=== PATIENT | male | born 1995 | race Caucasian/White ===

== ENCOUNTER 2016-07-31 20:36 | Emergency (ER) | payer SELFPAY ==
[2016-07-31 20:47] VITALS: BP 134/87; PULSE 114; RESP 16; O2SAT 92
[2016-07-31 20:48] VITALS: TEMP 98.4
[2016-07-31] MEDS ORDERED: NS 1,000 ML IV ONE (21:23)
--- NOTE | 2016-07-31 21:30 | CPEKG ---
Heart Rate: 105 RR Interval: 571 P-R Interval: 152 QRSD Interval: 96 QT Interval: 336 QTC Interval: 445 P [place]: 68 QRS [place]: 99 T Wave [place]: 24 EKG Severity - BORDERLINE ECG - EKG Impression: SINUS TACHYCARDIA EKG Impression: CONSIDER RIGHT VENTRICULAR HYPERTROPHY Electronically Signed By: Faraz Richards 31-Jul-2016 22:40:45
[2016-07-31] MEDS ORDERED: AMOXICILLIN/CLAVULANATE POT 875/125 MG TAB PO ONE (21:32)
[2016-07-31 21:42] LABS: % IMMATURE GRANULYOCYTES 0.3 % (0.0-1.1); ABSOLUTE IMMATURE GRANULOCYTES 0.02 10^3/uL (0.00-0.10); ADD DIFF? NO; ADD MORPH? NO; ADD SCAN? NO; ATYPICAL LYMPHOCYTE FLAG 10 (0-99); FRAGMENT RBC FLAG 0 (0-99); HEMATOCRIT 47.2 % (40.0-51.0); HEMOGLOBIN 16.4 g/dL (13.7-17.5); LEFT SHIFT FLG 0 (0-99); LIPEMIA HEMOLYSIS FLAG 90 (0-99); MEAN CELL HEMOGLOBIN 29.1 pg (27.9-34.1); MEAN CELL HEMOGLOBIN CONCENTR. 34.7 g/dL (32.4-36.7); MEAN CELL VOLUME 83.8 fL (81.5-99.8); MEAN PLATELET VOLUME 9.4 fL (8.7-11.7); PLATELET CLUMPS FLAG 0 (0-99); PLATELET COUNT 244 10^3/uL (150-400); RED BLOOD CELL COUNT 5.63 10^6/uL (4.40-6.38); RED CELL DISTRIBUTION WIDTH 12.3 % (11.5-15.2)
[2016-07-31 22:01] LABS: ANION GAP 16 mEq/L (8-16); CALCIUM 9.1 mg/dL (8.5-10.4); CARBON DIOXIDE 29 mEq/l (22-31); CHLORIDE 100 mEq/L (97-110); CREATININE 0.9 mg/dL (0.7-1.3); GLOMERULAR FILTRATION RATE > 60; GLUCOSE 103 mg/dL (70-100); POTASSIUM 3.9 mEq/L (3.5-5.2); SODIUM 145 mEq/L (134-144)
[2016-07-31 22:12] LABS: TROPONIN I < 0.012 ng/mL (0-0.034)
[2016-07-31] MEDS ORDERED: LETS SOLN TOPICAL 1 EA SYR TP ONE (22:57)
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
== END 2016-07-31 23:34 | disposition home or self-care (01) ==
DX: S29.9XXA Unspecified injury of thorax, initial encounter (principal); S09.90XA Unspecified injury of head, initial encounter; Y04.0XXA Assault by unarmed brawl or fight, initial encounter

== ENCOUNTER 2016-08-08 10:28 | Emergency (ER) | payer SELFPAY ==
[2016-08-08 10:33] VITALS: TEMP 98.1
[2016-08-08] MEDS ORDERED: NS 1,000 ML IV ONE ×2 (10:47→13:19)
[2016-08-08] MEDS ORDERED: PANTOPRAZOLE SODIUM 40 MG VIAL IVP ONE (10:47)
[2016-08-08] MEDS ORDERED: ONDANSETRON 4 MG/2 ML VIAL IVP ONE ×2 (10:47→11:27)
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
[2016-08-08 10:59] LABS: % IMMATURE GRANULYOCYTES 0.3 % (0.0-1.1); ABSOLUTE IMMATURE GRANULOCYTES 0.04 10^3/uL (0.00-0.10); ADD DIFF? NO; ADD MORPH? NO; ADD SCAN? NO; ATYPICAL LYMPHOCYTE FLAG 0 (0-99); FRAGMENT RBC FLAG 0 (0-99); HEMATOCRIT 49.7 % (40.0-51.0); HEMOGLOBIN 17.5 g/dL (13.7-17.5); LEFT SHIFT FLG 0 (0-99); LIPEMIA HEMOLYSIS FLAG 90 (0-99); MEAN CELL HEMOGLOBIN 29.5 pg (27.9-34.1); MEAN CELL HEMOGLOBIN CONCENTR. 35.2 g/dL (32.4-36.7); MEAN CELL VOLUME 83.8 fL (81.5-99.8); MEAN PLATELET VOLUME 9.2 fL (8.7-11.7); PLATELET CLUMPS FLAG 0 (0-99); PLATELET COUNT 176 10^3/uL (150-400); RED BLOOD CELL COUNT 5.93 10^6/uL (4.40-6.38); RED CELL DISTRIBUTION WIDTH 12.8 % (11.5-15.2)
[2016-08-08 11:10] LABS: ALANINE AMINOTRANSFERASE 38 IU/L (21-72); ALBUMIN 4.8 g/dL (3.5-5.0); ALKALINE PHOSPHATASE 148 IU/L (38-126); ANION GAP 15 mEq/L (8-16); ASPARTATE AMINOTRANSFERASE 34 IU/L (17-59); BILIRUBIN,TOTAL 1.6 mg/dL (0.1-1.4); BILIRUBIN-CONJUGATED 0.4 mg/dL (0.0-0.5); BILIRUBIN-UNCONJUGATED 1.2 mg/dL (0.0-1.1); CALCIUM 9.1 mg/dL (8.5-10.4); CARBON DIOXIDE 30 mEq/l (22-31); CHLORIDE 99 mEq/L (97-110); CREATININE 0.7 mg/dL (0.7-1.3); GLOMERULAR FILTRATION RATE > 60; GLUCOSE 155 mg/dL (70-100); MAGNESIUM 2.2 mg/dL (1.6-2.3); POTASSIUM 3.4 mEq/L (3.5-5.2); SODIUM 144 mEq/L (134-144); TOTAL PROTEIN 8.2 g/dL (6.3-8.2)
[2016-08-08 11:30] LABS: ETHANOL SERUM 347 mg/dL (0-10)
[2016-08-08] MEDS ORDERED: METOCLOPRAMIDE 10 MG/2 ML VIAL IVP ONE (11:36)
[2016-08-08 13:31] VITALS: RESP 16
[2016-08-08] MEDS ORDERED: CHLORDIAZEPOXIDE 25MG PREPK#6 BTL TAKEHOME ONE (14:31)
[2016-08-08 15:17] VITALS: BP 119/84; PULSE 98; O2SAT 94
== END 2016-08-08 15:16 | disposition home or self-care (01) ==
DX: K83.8 Other specified diseases of biliary tract (principal); B37.9 Candidiasis, unspecified; F10.120 Alcohol abuse with intoxication, uncomplicated
CPT/HCPCS: 96374; G0480; J1200; J2405; J2765

== ENCOUNTER 2016-08-08 23:04 | Inpatient (IN) | payer BC ==
[2016-08-08] MEDS ORDERED: LORazepam 2 MG/ML INJ ONE (23:09)
[2016-08-08] MEDS ORDERED: LORazepam 2 MG/ML INJ IVP ONE (23:15)
[2016-08-08] MEDS ORDERED: NS 1,000 ML IV ONE (23:15)
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
[2016-08-08] MEDS ORDERED: MAG HYDROX/AL HYDROX/SIMETH 30 ML UDCUP PO PRN (23:58)
[2016-08-09] MEDS: LORazepam 2 MG/ML INJ IVP PRN ×13 (00:35→22:00)
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
[2016-08-09] MEDS: NS 1,000 ML IV SCH (02:05)
[2016-08-09] MEDS: THIAMINE HCL 100 MG TAB PO SCH ×2 (02:11→08:19)
[2016-08-09 05:21] LABS: % IMMATURE GRANULYOCYTES 0.4 % (0.0-1.1); ABSOLUTE IMMATURE GRANULOCYTES 0.04 10^3/uL (0.00-0.10); ADD DIFF? NO; ADD MORPH? NO; ADD SCAN? NO; ATYPICAL LYMPHOCYTE FLAG 0 (0-99); FRAGMENT RBC FLAG 0 (0-99); HEMATOCRIT 39.7 % (40.0-51.0); HEMOGLOBIN 14.2 g/dL (13.7-17.5); LEFT SHIFT FLG 0 (0-99); LIPEMIA HEMOLYSIS FLAG 90 (0-99); MEAN CELL HEMOGLOBIN 29.6 pg (27.9-34.1); MEAN CELL HEMOGLOBIN CONCENTR. 35.8 g/dL (32.4-36.7); MEAN CELL VOLUME 82.7 fL (81.5-99.8); MEAN PLATELET VOLUME 9.8 fL (8.7-11.7); PLATELET CLUMPS FLAG 10 (0-99); PLATELET COUNT 118 10^3/uL (150-400); RED CELL DISTRIBUTION WIDTH 12.8 % (11.5-15.2)
[2016-08-09 05:28] LABS: INR 1.12 (0.83-1.16); PROTIME(PATIENT) 14.3 SEC (12.0-15.0)
[2016-08-09 05:29] LABS: APTT 30.3 SEC (23.0-38.0)
[2016-08-09 05:39] LABS: ALANINE AMINOTRANSFERASE 31 IU/L (21-72); ALBUMIN 3.9 g/dL (3.5-5.0); ALKALINE PHOSPHATASE 116 IU/L (38-126); ANION GAP 11 mEq/L (8-16); ASPARTATE AMINOTRANSFERASE 32 IU/L (17-59); BILIRUBIN,TOTAL 2.2 mg/dL (0.1-1.4); CALCIUM 8.8 mg/dL (8.5-10.4); CARBON DIOXIDE 27 mEq/l (22-31); CHLORIDE 99 mEq/L (97-110); CREATININE 0.6 mg/dL (0.7-1.3); GLOMERULAR FILTRATION RATE > 60; GLUCOSE 107 mg/dL (70-100); MAGNESIUM 1.3 mg/dL (1.6-2.3); POTASSIUM 3.7 mEq/L (3.5-5.2); SODIUM 137 mEq/L (134-144); TOTAL PROTEIN 6.5 g/dL (6.3-8.2)
[2016-08-09 06:02] LABS: BILIRUBIN-CONJUGATED 0.3 mg/dL (0.0-0.5); BILIRUBIN-UNCONJUGATED 1.9 mg/dL (0.0-1.1)
[2016-08-09] MEDS ORDERED: PROTOCOL MAGNESIUM 1 DOSE IV PRN (06:57)
[2016-08-09] MEDS ORDERED: PROTOCOL POTASSIUM 1 DOSE MISC PRN (06:57)
[2016-08-09] MEDS ORDERED: POTASSIUM CL 10 MEQ TAB PO ONE (07:22)
[2016-08-09] MEDS ORDERED: MAGNESIUM SULF 2 GM/WATER 50 ML IV ONE ×2 (08:14→20:27)
[2016-08-09] MEDS: MULTIVITAMINS 1 EACH TAB PO SCH (08:18)
[2016-08-09] MEDS: FOLIC ACID 1 MG TAB PO SCH (08:18)
[2016-08-09] MEDS: FAMOTIDINE 20 MG TAB PO SCH ×2 (08:19→23:54)
[2016-08-09] MEDS ORDERED: FAMOTIDINE 20 MG/NACL 50 ML IV SCH (09:00)
--- NOTE | 2016-08-09 09:17 | HOSPPROG ---
Hospitalist Progress Note Assessment/Plan: 20 yo M w alcoholism admitted w alcohol withdrawal and vomiting alcohol withdrawal: improved in that less tachy ang hypertensive still tremulous add scheduled librium vomiting: gastritis plus withdrawal continue h2 juan jose no signs bleeding elevated bilirubin: alcohol related liver disease or gilberts follow proph: add lmwh dispo: to floor does not want to return to [facility] high chance for relapse Subjective: tele: sinus tach (interp by me). case d/w dr muir Objective: Vital Signs Temp Pulse Resp BP Pulse Ox 36.8 C 72 15 114/86 H 97 08/09/16 07:21 08/09/16 07:21 08/09/16 07:21 08/09/16 07:21 08/09/16 07:21 Laboratory Results 08/09/16 05:00 08/09/16 05:00 08/08/16 08/09/16 08/10/16 05:59 05:59 05:59 Intake Total 1536 Balance 1536 PT 14.3 SEC (12.0-15.0) 08/09/16 05:00 INR 1.12 (0.83-1.16) 08/09/16 05:00 - Physical Exam Constitutional: no apparent distress, appears nourished, other (tremulous) Eyes: PERRL, anicteric sclera Ears, Nose, Mouth, Throat: moist mucous membranes, hearing normal Cardiovascular: regular rate and rhythym, no murmur, rub, or gallop Respiratory: no respiratory distress, no rales or rhonchi Gastrointestinal: normoactive bowel sounds, soft, non-tender abdomen Genitourinary: no bladder fullness, No rocha in urethra Skin: warm, normal color Musculoskeletal: no muscle tenderness, No full muscle strength Neurologic: AAOx3 Psychiatric: interacting appropriately, No not anxious ICD10 Worksheet Patient Problems: Problems Problem Status Onset Alcohol withdrawal Acute
[2016-08-09] MEDS: DEXMEDETOMIDINE HCL 400 MCG in NS 100 ML IV SCH ×2 (18:12→22:00)
[2016-08-09] MEDS: chlordiazePOXIDE 25 MG CAP PO SCH ×2 (18:14→23:47)
[2016-08-09 19:00] LABS: COLOR YELLOW; LEUKOCYTE ESTERASE,URINE NEGATIVE (NEGATIVE); NITRITE,URINE NEGATIVE (NEGATIVE)
[2016-08-09 19:43] LABS: POTASSIUM 3.7 mEq/L (3.5-5.2)
[2016-08-09] MEDS: POTASSIUM Cl (KCl) 100 ML IV SCH ×2 (22:00→23:52)
[2016-08-09] MEDS: FAMOTIDINE 20 MG/NACL 50 ML IV SCH (22:30)
[2016-08-09] MEDS: THIAMINE HCL 100 MG in NS 50 ML IV SCH (23:53)
[2016-08-10] MEDS ORDERED: NS 1,000 ML IV SCH (00:45)
[2016-08-10] MEDS: DEXMEDETOMIDINE HCL 400 MCG in NS 100 ML IV SCH ×5 (02:34→19:58)
[2016-08-10 06:17] LABS: MAGNESIUM 2.2 mg/dL (1.6-2.3); POTASSIUM 3.6 mEq/L (3.5-5.2)
[2016-08-10] MEDS: THIAMINE HCL 100 MG in NS 50 ML IV SCH (08:37)
[2016-08-10] MEDS ORDERED: LORazepam 2 MG/ML INJ IVP ONE (08:53)
[2016-08-10] MEDS ORDERED: LORazepam 2 MG/ML INJ IVP PRN ×2 (09:23→09:28)
--- NOTE | 2016-08-10 09:33 | HOSPPROG ---
Hospitalist Progress Note Assessment/Plan: 20 yo M w alcoholism admitted w alcohol withdrawal and vomiting. Withdrawal significantly worse overnight alcohol withdrawal: now sedated on precedex- probably oversedated to sedated for po's wean precedex add scheduled ativan 1 q 4 vomiting: gastritis plus withdrawal continue h2 juan jose no signs bleeding check hct today elevated bilirubin: alcohol related liver disease or gilberts follow proph: add lmwh dispo: step down Subjective: agitated oernight requiring precedex and a visit from security officers. case d/w dr muir. tele: sinus tach AM 08/09 (interp by ar) Objective: Vital Signs Temp Pulse Resp BP Pulse Ox 36.7 C 67 18 133/91 H 99 08/10/16 08:00 08/10/16 08:00 08/10/16 08:00 08/10/16 08:00 08/10/16 08:00 Laboratory Results 08/09/16 05:00 08/10/16 05:55 08/09/16 08/10/16 08/11/16 05:59 05:59 05:59 Intake Total 1536 1494 Balance 1536 1494 PT 14.3 SEC (12.0-15.0) 08/09/16 05:00 INR 1.12 (0.83-1.16) 08/09/16 05:00 ICD10 Worksheet Patient Problems: Problems Problem Status Onset Alcohol withdrawal Acute
[2016-08-10] MEDS: chlordiazePOXIDE 25 MG CAP PO SCH (10:04)
[2016-08-10] MEDS: MULTIVITAMINS 1 EACH TAB PO SCH (10:04)
[2016-08-10] MEDS: FOLIC ACID 1 MG TAB PO SCH (10:04)
[2016-08-10] MEDS: FAMOTIDINE 20 MG/NACL 50 ML IV SCH ×2 (10:05→20:03)
[2016-08-10 11:08] LABS: % IMMATURE GRANULYOCYTES 0.4 % (0.0-1.1); ABSOLUTE IMMATURE GRANULOCYTES 0.03 10^3/uL (0.00-0.10); ADD DIFF? NO; ADD MORPH? NO; ADD SCAN? NO; ATYPICAL LYMPHOCYTE FLAG 0 (0-99); FRAGMENT RBC FLAG 0 (0-99); HEMOGLOBIN 13.2 g/dL (13.7-17.5); LEFT SHIFT FLG 30 (0-99); LIPEMIA HEMOLYSIS FLAG 90 (0-99); MEAN CELL HEMOGLOBIN 29.3 pg (27.9-34.1); MEAN CELL HEMOGLOBIN CONCENTR. 34.7 g/dL (32.4-36.7); MEAN CELL VOLUME 84.3 fL (81.5-99.8); MEAN PLATELET VOLUME 10.1 fL (8.7-11.7); PLATELET CLUMPS FLAG 0 (0-99); PLATELET COUNT 85 10^3/uL (150-400); RED BLOOD CELL COUNT 4.51 10^6/uL (4.40-6.38); RED CELL DISTRIBUTION WIDTH 13.1 % (11.5-15.2)
[2016-08-10 11:32] LABS: ANION GAP 7 mEq/L (8-16); CARBON DIOXIDE 21 mEq/l (22-31); CHLORIDE 110 mEq/L (97-110); CREATININE 0.5 mg/dL (0.7-1.3); GLOMERULAR FILTRATION RATE > 60; GLUCOSE 95 mg/dL (70-100); SODIUM 138 mEq/L (134-144)
[2016-08-10] MEDS: NS 1,000 ML IV SCH ×2 (12:56→19:58)
[2016-08-10] MEDS: LORazepam 2 MG/ML INJ IVP PRN ×3 (13:30→19:58)
--- NOTE | 2016-08-10 16:35 | GCON ---
[f rep st] CONSULTATION PULMONARY/CRITICAL CARE CONSULTATION. DATE OF CONSULTATION: 08/10/2016 REFERRING PHYSICIAN: Macario Talley MD REASON FOR REFERRAL: Evaluation and management of altered mental status and alcohol withdrawal. HISTORY: The patient is a 20-year-old male with a history of alcohol abuse who is sent to the emerg ency department from the [facility] for acute alcohol withdrawal. On 08/08 he presented with a headache, n ausea and vomiting with acute alcohol intoxication. He also had some vomiting for several days, al though he continued to drink. He stopped drinking in the morning of the . His evaluation there was unremarkable and he was sent to the [facility] with a Librium prescription. He was in moderate withdr awal there and progressively worsened so he was transferred back to the emergency department and adm itted, due to moderate alcohol withdrawal with a CIWA score of 17, including some auditory hallucina tions. He was treated with IV Ativan and Precedex. He has been somnolent with intermittent agitati on since admission. He is currently minimally responsive and not able to answer questions. PAST MEDICAL HISTORY: Chronic alcohol use status post rehab stay in May 2016. He apparently h as no history of seizures. MEDICATIONS: None. ALLERGIES: None. SOCIAL HISTORY: Heavy alcohol use. He does not smoke. He lives here in [place] with his brother. FAMILY HISTORY: Unremarkable. REVIEW OF SYSTEMS: Unobtainable. PHYSICAL EXAMINATION: GENERAL: The patient is somnolent and arousable just to noxious stimuli. He is not able to follow commands. VITAL SIGNS: Blood pressure is 133/97, with a heart rate of 65, r espiratory rate is 22 and mildly labored, with deep regular respirations. He is afebrile. Oxygen s aturations are 98% on 1 L. HEENT: Normocephalic and atraumatic. No icterus. NECK: No JVD. Trac hea is midline. CHEST: Clear to auscultation. CARDIAC: Regular rate and rhythm without murmur. ABDOMEN: Soft, nontender. Bowel sounds are present. EXTREMITIES: No clubbing, cyanosis, or edema . NEURO: Responsive only to noxious stimuli. Moves all 4 extremities semi purposefully. LABORATORY: Chemistry group is remarkable for a sodium 138, and a potassium of 3.0. Carbon dioxide level is 21. Anion gap is 7. Hemoglobin of 13.2 with a white blood count of 8.2. INR is 1.1. ASSESSMENT: 1. Alcohol withdrawal. This is moderate in severity. The patient is currently on Ativan. He was on 2 mg every 4 hours and this has been decreased to 1 mg every 4 hours because the patient was quit e sedated. He is also on Precedex. He was written for Librium but he is not able to take p.o. curr ently. 2. Tachypnea. The patient is tachypneic with deep respirations. He has a suggestion of mild metab olic acidosis based on the chemistry test taken earlier. RECOMMENDATIONS: 1. Continue Ativan. If he remains this sedated, we may change the scheduled IV Ativan to p.r.n. 2. Check an arterial blood gas to ensure the patient does not have a worsening metabolic acidosis a s the cause of his tachypnea. /[id number]/MODL
[2016-08-10 16:45] LABS: BASE EXCESS -0.5 mEq/L (-2.5-2.5); BICARBONATE 23 mEq/L (22-26); MEASURED OXYGEN SATURATION 92 % (92-95); PCO2 35 mmHg (34-38); PO2 60 mmHg (65-75); TCO2 24 mEq/L (23-27)
[2016-08-10] MEDS ORDERED: PROTOCOL MAGNESIUM 1 DOSE IV PRN (23:14)
[2016-08-10] MEDS ORDERED: PROTOCOL POTASSIUM 1 DOSE MISC PRN (23:14)
[2016-08-11 00:36] LABS: MAGNESIUM 1.6 mg/dL (1.6-2.3); POTASSIUM 3.5 mEq/L (3.5-5.2)
[2016-08-11] MEDS ORDERED: MAGNESIUM SULF 1 GM/DEXTROSE 100 ML IV ONE (00:43)
[2016-08-11] MEDS: LORazepam 2 MG/ML INJ IVP PRN (01:54)
[2016-08-11] MEDS: POTASSIUM Cl (KCl) 100 ML IV SCH ×7 (01:54→13:15)
[2016-08-11] MEDS: DEXMEDETOMIDINE HCL 400 MCG in NS 100 ML IV SCH (01:55)
[2016-08-11] MEDS: NS 1,000 ML IV SCH (05:03)
[2016-08-11 08:17] LABS: ANION GAP 5 mEq/L (8-16); CALCIUM 5.9 mg/dL (8.5-10.4); CARBON DIOXIDE 20 mEq/l (22-31); CHLORIDE 112 mEq/L (97-110); CREATININE 0.4 mg/dL (0.7-1.3); GLOMERULAR FILTRATION RATE > 60; GLUCOSE 72 mg/dL (70-100); SODIUM 137 mEq/L (134-144)
[2016-08-11 08:21] LABS: POTASSIUM 2.6 mEq/L (3.5-5.2)
[2016-08-11] MEDS ORDERED: POTASSIUM CL 20 MEQ/15 ML UDCUP PO ONE (08:29)
[2016-08-11] MEDS ORDERED: THIAMINE HCL 100 MG TAB PO SCH (09:00)
[2016-08-11] MEDS ORDERED: MAGNESIUM SULF 2 GM/WATER 50 ML IV ONE (09:18)
[2016-08-11] MEDS: FAMOTIDINE 20 MG/NACL 50 ML IV SCH (09:32)
[2016-08-11] MEDS: chlordiazePOXIDE 25 MG CAP PO SCH ×3 (09:32→21:05)
[2016-08-11] MEDS: MULTIVITAMINS 1 EACH TAB PO SCH (09:32)
[2016-08-11] MEDS: FOLIC ACID 1 MG TAB PO SCH (09:32)
--- NOTE | 2016-08-11 09:52 | HOSPPROG ---
Hospitalist Progress Note Assessment/Plan: 20 yo M w alcoholism admitted w alcohol withdrawal and vomiting. alcohol withdrawal: weaned off precedex. cont scheduled librium, prn ativan. likely transfer to floor today if remains stable off precedex. vomiting: gastritis plus withdrawal continue h2 juan jose no signs bleeding elevated bilirubin: alcohol related liver disease or gilberts follow proph: SCD's dispo: step down Subjective: Pt more awake, off precedex. Appears dry. Denies CP, SOB, N/V/D. No abdominal pain. Objective: Vital Signs Temp Pulse Resp BP Pulse Ox 37.4 C 68 22 H 129/98 H 94 08/11/16 07:50 08/11/16 07:50 08/11/16 07:50 08/11/16 07:50 08/11/16 07:50 Laboratory Results 08/10/16 10:30 08/11/16 07:46 08/10/16 08/11/16 08/12/16 05:59 05:59 05:59 Intake Total 1494 4626 Output Total 2725 Balance 1494 1901 PT 14.3 SEC (12.0-15.0) 08/09/16 05:00 INR 1.12 (0.83-1.16) 08/09/16 05:00 - Physical Exam Constitutional: no apparent distress Eyes: PERRL Ears, Nose, Mouth, Throat: moist mucous membranes Cardiovascular: regular rate and rhythym Respiratory: no respiratory distress, clear to auscultation Gastrointestinal: normoactive bowel sounds, soft, non-tender abdomen Skin: warm Musculoskeletal: full muscle strength Neurologic: AAOx3 ICD10 Worksheet Patient Problems: Problems Problem Status Onset Alcohol withdrawal Acute
[2016-08-11] MEDS ORDERED: LORazepam 2 MG/ML INJ IVP PRN (14:32)
[2016-08-11] MEDS: LORazepam 0.5 MG TAB PO PRN ×3 (16:08→23:54)
--- NOTE | 2016-08-11 16:17 | PDINTPN ---
Sil[facility] Examiner Progress Note Assessment/Plan: Assessment: Alcohol Withdrawal: Improved, more alert, taking PO. Hypokalemia: No signs cardiac arrhythmias Hypercalcemia: No Sx Hypomagnesemia: Plan: Replace Mg, K+, Ca++. Complete transition to PO benzo's. Transfer to M/S. 08/11/16 16:20 Subjective: More alert, minimal agitation. aking PO, able to walk with minimal assistance. No pain. Objective: Vital Signs Temp Pulse Resp BP Pulse Ox 37.1 C 96 16 126/85 H 94 08/11/16 16:00 08/11/16 16:00 08/11/16 16:00 08/11/16 16:00 08/11/16 07:50 Laboratory Results 08/10/16 10:30 08/11/16 07:46 08/10/16 08/11/16 08/12/16 05:59 05:59 05:59 Intake Total 1494 4626 Output Total 2725 2205 Balance 1494 1901 -2205 PT 14.3 SEC (12.0-15.0) 08/09/16 05:00 INR 1.12 (0.83-1.16) 08/09/16 05:00 Physical Exam - Physical Exam General Appearance: alert, no apparent distress EENT: normal ENT inspection Neck: normal inspection Respiratory: lungs clear, normal breath sounds Cardiac/Chest: regular rate, rhythm, No edema Abdomen: normal bowel sounds, non-tender, soft Skin: normal color, warm/dry Extremities: normal inspection Neuro/Psych: alert, normal mood/affect ICD10 Worksheet Patient Problems: Problems Problem Status Onset Alcohol withdrawal Acute
[2016-08-11 19:01] LABS: POTASSIUM 4.4 mEq/L (3.5-5.2)
[2016-08-11] MEDS: FAMOTIDINE 20 MG TAB PO SCH (20:05)
[2016-08-12 03:28] LABS: ANION GAP 14 mEq/L (8-16); CARBON DIOXIDE 24 mEq/l (22-31); CHLORIDE 100 mEq/L (97-110); CREATININE 0.6 mg/dL (0.7-1.3); GLUCOSE 89 mg/dL (70-100); POTASSIUM 3.4 mEq/L (3.5-5.2); SODIUM 138 mEq/L (134-144)
[2016-08-12 03:29] LABS: ALANINE AMINOTRANSFERASE 30 IU/L (21-72); ALBUMIN 4.3 g/dL (3.5-5.0); ALKALINE PHOSPHATASE 119 IU/L (38-126); ASPARTATE AMINOTRANSFERASE 24 IU/L (17-59); BILIRUBIN,TOTAL 1.6 mg/dL (0.1-1.4); CALCIUM 9.1 mg/dL (8.5-10.4); GLOMERULAR FILTRATION RATE > 60; MAGNESIUM 2.3 mg/dL (1.6-2.3); TOTAL PROTEIN 7.1 g/dL (6.3-8.2)
[2016-08-12] MEDS ORDERED: POTASSIUM CL 10 MEQ TAB PO ONE ×2 (04:01→19:39)
[2016-08-12] MEDS: LORazepam 0.5 MG TAB PO PRN ×4 (04:22→21:02)
[2016-08-12] MEDS: chlordiazePOXIDE 25 MG CAP PO SCH ×2 (08:44→20:57)
[2016-08-12] MEDS: FOLIC ACID 1 MG TAB PO SCH (08:44)
[2016-08-12] MEDS: MULTIVITAMINS 1 EACH TAB PO SCH (08:44)
[2016-08-12] MEDS: FAMOTIDINE 20 MG TAB PO SCH ×2 (08:44→20:57)
--- NOTE | 2016-08-12 13:46 | HOSPPROG ---
Hospitalist Progress Note Assessment/Plan: 20 yo M w alcoholism admitted w alcohol withdrawal and vomiting. alcohol withdrawal: CIWA's variable. weaned off precedex. will wean dose of scheduled librium, cont prn ativan. transfer to med surg. vomiting: gastritis plus withdrawal continue h2 juan jose no signs bleeding hypokalemia: on replacement protocol, follow elevated bilirubin: alcohol related liver disease vs gilberts. trending down. proph: SCD's dispo: transfer to med surg Subjective: Pt still a bit confused, mixing up words. Mild tremor, still some epigstric discomfort. No N/V or e/o bleeding. Objective: Vital Signs Temp Pulse Resp BP Pulse Ox 37.0 C 96 14 143/90 H 96 08/12/16 11:18 08/12/16 11:18 08/12/16 11:18 08/12/16 11:18 08/12/16 11:18 Laboratory Results 08/10/16 10:30 08/12/16 03:00 08/11/16 08/12/16 08/13/16 05:59 05:59 05:59 Intake Total 4626 1500 Output Total 2725 2205 Balance 1901 -705 PT 14.3 SEC (12.0-15.0) 08/09/16 05:00 INR 1.12 (0.83-1.16) 08/09/16 05:00 - Physical Exam Constitutional: no apparent distress Eyes: PERRL Ears, Nose, Mouth, Throat: moist mucous membranes Cardiovascular: tachycardia Respiratory: no respiratory distress Gastrointestinal: normoactive bowel sounds, soft, non-tender abdomen Skin: warm Musculoskeletal: full muscle strength Neurologic: AAOx3 Psychiatric: interacting appropriately ICD10 Worksheet Patient Problems: Problems Problem Status Onset Alcohol withdrawal Acute
[2016-08-12] MEDS: ACETAMINOPHEN 325 MG TAB PO PRN ×2 (15:19→20:16)
[2016-08-12 19:05] LABS: POTASSIUM 3.4 mEq/L (3.5-5.2)
[2016-08-13] MEDS: LORazepam 0.5 MG TAB PO PRN (00:59)
[2016-08-13] MEDS: ACETAMINOPHEN 325 MG TAB PO PRN ×4 (01:02→18:36)
[2016-08-13] MEDS ORDERED: HALOPERIDOL 2 MG TAB PO ONE (02:30)
[2016-08-13 05:33] LABS: MAGNESIUM 2.1 mg/dL (1.6-2.3); POTASSIUM 3.5 mEq/L (3.5-5.2)
[2016-08-13] MEDS: chlordiazePOXIDE 25 MG CAP PO SCH ×3 (08:22→21:10)
[2016-08-13] MEDS: MULTIVITAMINS 1 EACH TAB PO SCH (08:22)
[2016-08-13] MEDS: FOLIC ACID 1 MG TAB PO SCH (08:22)
[2016-08-13] MEDS: FAMOTIDINE 20 MG TAB PO SCH ×2 (08:22→21:10)
[2016-08-13] MEDS ORDERED: HALOPERIDOL 2 MG TAB PO PRN (09:07)
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
[2016-08-13] MEDS ORDERED: POTASSIUM CL 10 MEQ TAB PO ONE ×2 (10:36→13:30)
[2016-08-13 18:09] LABS: POTASSIUM 4.1 mEq/L (3.5-5.2)
[2016-08-14] MEDS: LORazepam 0.5 MG TAB PO PRN ×5 (00:17→23:22)
[2016-08-14 05:25] LABS: POTASSIUM 3.5 mEq/L (3.5-5.2)
[2016-08-14] MEDS: chlordiazePOXIDE 25 MG CAP PO SCH ×2 (08:30→20:30)
[2016-08-14] MEDS: FOLIC ACID 1 MG TAB PO SCH (08:30)
[2016-08-14] MEDS: MULTIVITAMINS 1 EACH TAB PO SCH (08:30)
[2016-08-14] MEDS: FAMOTIDINE 20 MG TAB PO SCH (08:30)
[2016-08-14] MEDS: ACETAMINOPHEN 325 MG TAB PO PRN ×3 (08:40→22:22)
[2016-08-14] MEDS ORDERED: MAGNESIUM HYDROXIDE 30 ML UDCUP PO PRN (08:48)
[2016-08-14] MEDS ORDERED: POLYETHYLENE GLYCOL 3350 17 GM PKT PO PRN (08:48)
[2016-08-14] MEDS ORDERED: BISACODYL 10 MG SUPP PR PRN (08:48)
[2016-08-14] MEDS ORDERED: LACTULOSE 20 GM/30 ML UDCUP PO PRN (08:48)
[2016-08-14] MEDS: SENNOSIDES/DOCUSATE SODIUM TAB PO SCH ×2 (09:51→20:30)
[2016-08-14] MEDS ORDERED: POTASSIUM CL 10 MEQ TAB PO ONE (11:29)
[2016-08-14] MEDS ORDERED: D5W NS W/ 20 KCl/L 1,000 ML IV SCH (12:15)
--- NOTE | 2016-08-14 12:16 | HOSPPROG ---
Hospitalist Progress Note Assessment/Plan: 20 yo M w alcoholism admitted w alcohol withdrawal and vomiting. alcohol withdrawal: 5 days since last drink. CIWA's variable, still up to 13 overnight with hallucinations. weaned off precedex. -reduce librium to BID -cont prn ativan -pt plans to go to AA upon d/c and also has Rx for naltrexone to prevent cravings acute pancreatitis: lipase >3K. Will make NPO for bowel rest, start IVF's, PPI , pain control. hypokalemia: on replacement protocol, follow elevated bilirubin: alcohol related liver disease vs gilberts. trending down. proph: SCD's dispo: cont inpt Subjective: Pt c/o epigastric pain. N/V improved. Ate a lot of greasy food yesterday, which contributed to increased pain. No fevers. Objective: Vital Signs Temp Pulse Resp BP Pulse Ox 36.4 C 86 20 122/71 H 97 08/14/16 11:40 08/14/16 11:40 08/14/16 11:40 08/14/16 11:40 08/14/16 11:40 Laboratory Results 08/10/16 10:30 08/14/16 04:34 08/13/16 08/14/16 08/15/16 05:59 05:59 05:59 Intake Total 950 1250 Balance 950 1250 PT 14.3 SEC (12.0-15.0) 08/09/16 05:00 INR 1.12 (0.83-1.16) 08/09/16 05:00 - Physical Exam Constitutional: no apparent distress Eyes: PERRL Ears, Nose, Mouth, Throat: moist mucous membranes Cardiovascular: regular rate and rhythym Respiratory: no respiratory distress Gastrointestinal: normoactive bowel sounds, other (soft, nd, +epigastric TTP, no r/r/g) Skin: warm Musculoskeletal: full muscle strength Neurologic: AAOx3 Psychiatric: interacting appropriately ICD10 Worksheet Patient Problems: Problems Problem Status Onset Alcohol withdrawal Acute
[2016-08-14] MEDS: PANTOPRAZOLE SODIUM 40 MG in NS 100 ML IV SCH (15:25)
[2016-08-14] MEDS: SUCRALFATE 1 GM/10 ML UDCUP PO SCH ×3 (15:25→20:30)
[2016-08-15] MEDS: ACETAMINOPHEN 325 MG TAB PO PRN ×4 (05:11→22:42)
[2016-08-15 05:43] LABS: ANION GAP 8 mEq/L (8-16); CARBON DIOXIDE 26 mEq/l (22-31); CHLORIDE 108 mEq/L (97-110); CREATININE 0.6 mg/dL (0.7-1.3); GLOMERULAR FILTRATION RATE > 60; GLUCOSE 108 mg/dL (70-100); POTASSIUM 3.9 mEq/L (3.5-5.2); SODIUM 142 mEq/L (134-144)
[2016-08-15] MEDS: LORazepam 0.5 MG TAB PO PRN ×2 (07:14→13:19)
[2016-08-15] MEDS: FOLIC ACID 1 MG TAB PO SCH (10:03)
[2016-08-15] MEDS: MULTIVITAMINS 1 EACH TAB PO SCH (10:03)
[2016-08-15] MEDS: chlordiazePOXIDE 25 MG CAP PO SCH (10:03)
[2016-08-15] MEDS: SENNOSIDES/DOCUSATE SODIUM TAB PO SCH ×2 (10:03→20:24)
[2016-08-15] MEDS: PANTOPRAZOLE SODIUM 40 MG in NS 100 ML IV SCH (10:03)
[2016-08-15] MEDS: SUCRALFATE 1 GM/10 ML UDCUP PO SCH ×4 (10:10→20:24)
[2016-08-15] MEDS ORDERED: POTASSIUM CL 10 MEQ TAB PO ONE (11:45)
--- NOTE | 2016-08-15 14:23 | HOSPPROG ---
Hospitalist Progress Note Assessment/Plan: 20 yo M w alcoholism admitted w alcohol withdrawal, now with pancreatitis alcohol withdrawal: 5 days since last drink. Required ICU care with Precedex. Now improved, through w/d, CIWA's 2-3 overnight. -d/c librium -prn ativan -pt plans to go to AA upon d/c and also has Rx for naltrexone to prevent cravings acute pancreatitis: lipase trending down and pt is pain free today after 24 hrs bowel rest. he feels much better and wants to go home. -trial clears today -change to oral ppi -will defer checking lipase in am and follow clinical status. If tolerating po without increased pain, can d/c home in am. hypokalemia: replaced, resolved elevated bilirubin: trended down, likely etoh related proph: SCD's dispo: cont inpt, if remains pain free with oral intake, d/c home in am Subjective: Pt feels much better. No pain. NPO for past 24 hrs. Wants to go home, but hasn't taken any po. No fevers. No N/V. Objective: Vital Signs Temp Pulse Resp BP Pulse Ox 36.8 C 89 18 124/83 H 98 08/15/16 11:37 08/15/16 11:37 08/15/16 11:37 08/15/16 11:37 08/15/16 11:37 Laboratory Results 08/10/16 10:30 08/15/16 04:38 08/14/16 08/15/16 08/16/16 05:59 05:59 05:59 Intake Total 2573 927 7804 Balance 2564 337 1928 PT 14.3 SEC (12.0-15.0) 08/09/16 05:00 INR 1.12 (0.83-1.16) 08/09/16 05:00 - Physical Exam Constitutional: no apparent distress Eyes: PERRL Ears, Nose, Mouth, Throat: moist mucous membranes Cardiovascular: regular rate and rhythym Respiratory: no respiratory distress, clear to auscultation Gastrointestinal: normoactive bowel sounds, soft, non-tender abdomen Skin: warm Musculoskeletal: full muscle strength Neurologic: AAOx3 Psychiatric: interacting appropriately ICD10 Worksheet Patient Problems: Problems Problem Status Onset Alcohol withdrawal Acute
[2016-08-15] MEDS ORDERED: NS 1,000 ML IV SCH (14:30)
[2016-08-15] MEDS ORDERED: hydrOXYzine HCL 25 MG TAB PO PRN (17:09)
[2016-08-15 20:11] VITALS: RESP 16
[2016-08-16 03:50] VITALS: O2SAT 97
[2016-08-16] MEDS: SUCRALFATE 1 GM/10 ML UDCUP PO SCH (07:41)
[2016-08-16] MEDS: ACETAMINOPHEN 325 MG TAB PO PRN (07:42)
[2016-08-16 08:34] VITALS: BP 128/81; PULSE 82; TEMP 97.9
[2016-08-16] MEDS ORDERED: PANTOPRAZOLE SODIUM 40 MG TAB PO SCH (09:00)
[2016-08-16] MEDS: FOLIC ACID 1 MG TAB PO SCH (09:45)
[2016-08-16] MEDS: MULTIVITAMINS 1 EACH TAB PO SCH (09:45)
[2016-08-16] MEDS: SENNOSIDES/DOCUSATE SODIUM TAB PO SCH (09:46)
--- NOTE | 2016-08-16 10:37 | GDS ---
[f rep st] DISCHARGE SUMMARY ALL DIAGNOSES: 1. Acute severe alcohol withdrawal. 2. Acute pancreatitis. 3. Hypokalemia. 4. Elevated bilirubin, down trending. 5. Mild anemia. 6. Thrombocytopenia. HOSPITAL COURSE: 20-year-old man who was admitted with alcohol withdrawal, quite severe, required P recedex drip in the ICU. On discharge, he appears comfortable. This is completely resolved. Recei lisandra his last benzodiazepine about 20 hours prior to discharge. His plan is to go to [facility] after [facility]. He has a friend at work who is also a member of [facility]. He was given a prescrip tion from last time he went to rehab for naltrexone which he will fill. He also had pancreatitis. On the day of discharge, he is tolerating a full meal with no nausea, vom iting, or abdominal pain. His abdominal exam is benign on the day of discharge. He likely has some gastritis. I have given him a prescription for a PPI. FOLLOWUP: He has no primary care physician. I have given him referrals to see a few primary care p hysicians around here. He will call and try and schedule an appointment. He is discharged in stabl e condition. Billing: I spent more than 30 minutes on the day of discharge coordinating care. /[id number]/MODL
== END 2016-08-16 10:41 | disposition home or self-care (01) | DRG 896 ==
LOC: MERGE 23:44 → F2N 08-09 00:43 → F3N 08-12 11:15
PROVIDERS: ADMIT Internal Medicine; ATTEND Student in an Organized Health Care Education/Training Program
PROC: HZ2ZZZZ Detoxification Services for Substance Abuse Treatment (ICD-10-PCS; principal; 2016-08-09)
DX: F10.231 Alcohol dependence with withdrawal delirium (principal); K85.20 Alcohol induced acute pancreatitis without necrosis or infection; K29.70 Gastritis, unspecified, without bleeding; B37.0 Candidal stomatitis; E87.6 Hypokalemia; D64.9 Anemia, unspecified; D69.6 Thrombocytopenia, unspecified; R51 Headache
CPT/HCPCS: 96374; 97116-GP; 97161-GP; J2060; J3411; J3475